=== PATIENT | female | born 1990 | race Caucasian/White ===

== ENCOUNTER 2023-06-12 12:42 | Outpatient (CLI) | payer BC, SELFPAY ==
--- NOTE | 2023-06-12 13:00 | CRLHL7_ITS ---
For Patients: As a result of the Century Cures Act, medical imaging exams and procedure reports are released immediately into your electronic medical record. You may view this report before your referring provider. If you have questions, please contact your health care provider. INDICATION: First trimester scan, establish dates. COMPARISON: None. TECHNIQUE: Real-time lange-scale imaging of the pelvis was performed. FINDINGS: Sonographic imaging demonstrates a single living intrauterine gestation. The embryo demonstrates a regular cardiac rate measuring 163 beats per minute. The embryo`s crown-rump length measurement of 2.0 cm corresponds to a gestational age of 8 weeks 4 days with a sonographic due date of 01/18/2024. There is a normal-appearing yolk sac. There are no gross abnormalities noted within the embryo at this early state of development. The gestational sac has a normal appearance. There is no evidence of a perigestational hemorrhage. The amount of fluid within the sac appears appropriate for gestational age. The cervix is closed. The myometrium appears normal. The ovaries are of normal size. Corpus luteal cyst left ovary. There are no suspicious fluid collections noted in the cul-de-sac. IMPRESSION: Normal first trimester OB ultrasound exam. Gestational age calculated at 8 weeks 4 days with a sonographic due date of 01/18/2024. Dictated by Roderick Mayer MD @ 06/13/2023 11:07:00 AM (Electronically Signed)
== END 2023-06-12 12:43 | disposition home or self-care (01) ==
LOC: US 12:43
PROVIDERS: Visit Provider Advanced Practice Midwife
DX: Z34.91 Encounter for supervision of normal pregnancy, unspecified, first trimester (principal); Z3A.08 8 weeks gestation of pregnancy
CPT/HCPCS: 76817; 86703; 86706; 86803; 86850; 86900; 86901; 87086; 87340; 87491; 87591

== ENCOUNTER 2023-06-12 13:02 | Outpatient (CLI) | payer BC, SELFPAY ==
[2023-06-12 20:27] LABS: Chlamydia DNA Amplified* NOT DETECTED (No Detected); GC DNA Amplified* NOT DETECTED (No Detected)
== END 2023-06-12 13:03 | disposition home or self-care (01) ==
PROVIDERS: Visit Provider Advanced Practice Midwife
DX: Z34.01 Encounter for supervision of normal first pregnancy, first trimester (principal)
CPT/HCPCS: 86592; 86703; 86704; 86706; 86762; 86787; 86803; 86850; 86900; 86901; 87086; 87340; 87491; 87591

== ENCOUNTER 2023-09-02 13:45 | Outpatient (CLI) | payer BC, SELFPAY ==
--- NOTE | 2023-09-02 14:00 | US_ITS ---
Patient: JOSSELIN GRIFFIN Facility:?[facility] Patient ID:?[id number] Site Patient ID:?[id number]. Site :?1991 Study:?US-OB Pelvis anatomy-09/02/2023 2:58:30 PM Ordering Physician:WARREN RAM Final Report: INDICATION: Evaluate anatomy. COMPARISON: 06/12/2023 TECHNIQUE: Real time lange scale imaging of the fetus was performed as well as color Doppler analysis of the umbilical vessels. FINDINGS: Sonographic imaging demonstrates a single living intrauterine gestation. Fetus demonstrates a regular cardiac rate of 150 beats per minute. Fetus has a breech position. The placenta lies posteriorly without evidence of placenta previa. Placental edge is 3.9 cm from the internal cervical os. Amniotic fluid volume appears normal. Single deepest vertical pocket: 5.6 cm. The cervix is closed and measures 4.3 cm in length. The composite ultrasound gestational age is calculated at 20 weeks 3 days with an estimated sonographic due date of 01/17/2024. The estimated weight is 375 grams which lies at the 79th %. The following biometric measurements were obtained: Biparietal diameter: 4.7 cm/20 weeks 2 days 57th% Head circumference: 17.8 cm/20 weeks 2 days 47th% Abdominal circumference: 15.8 cm/20 weeks 6 days 70th% Femur length: 3.4 cm/20 weeks 5 days 64th% The HC/AC ratio measures: 1.13 range (1.07-1.25) On anatomic survey, there is a normal appearance of the cerebral ventricles, cavum septi pellucidi, cisterna magna and cerebellum. The nose, lips, and facial profile appear normal. The cervical, thoracic and lumbar spine are well visualized and appear normal. There is a normal four-chamber heart view and the left and right ventricular outflow tracts appear normal. The diaphragm and stomach appear normal. The kidneys and bladder also appear normal. There is a normal three-vessel cord and cord insertion site. The four extremities appear normal. IMPRESSION: Normal OB ultrasound exam with concordance of clinical and sonographic dating. No intrinsic abnormalities noted on anatomic survey. Dictated by Roderick Mayer MD @ 09/03/2023 6:24:03 AM Signed by:?Roderick Mayer MD @09/03/2023 6:24:03 AM (Electronic Signature)
== END 2023-09-02 13:46 | disposition home or self-care (01) ==
LOC: US 13:45
PROVIDERS: Visit Provider Advanced Practice Midwife
DX: Z34.92 Encounter for supervision of normal pregnancy, unspecified, second trimester (principal); Z3A.20 20 weeks gestation of pregnancy
CPT/HCPCS: 76805

== ENCOUNTER 2023-11-05 13:30 | Outpatient (CLI) | payer BC, SELFPAY | END 2023-11-05 13:31 | disposition home or self-care (01) | LOC: NFLDREF 11-10 07:07 | PROVIDERS: Visit Provider Advanced Practice Midwife | DX: Z34.92 Encounter for supervision of normal pregnancy, unspecified, second trimester (principal) | CPT/HCPCS: 86592 ==

== ENCOUNTER 2023-12-09 11:57 | Outpatient (CLI) | payer BC, SELFPAY ==
[2023-12-10 14:27] LABS: Strep B DNA Probe Negative (Negative)
[2023-12-10 14:38] LABS: Strep B Susceptibility Needed? No
== END 2023-12-09 11:58 | disposition home or self-care (01) ==
LOC: NFLDREF 11:57
PROVIDERS: Visit Provider Advanced Practice Midwife
DX: Z34.83 Encounter for supervision of other normal pregnancy, third trimester (principal)
CPT/HCPCS: 82728; 87081; 87653

== ENCOUNTER 2024-01-20 15:24 | Outpatient (CLI) | payer BC, SELFPAY | END 2024-01-20 15:25 | disposition home or self-care (01) | LOC: NFLDREF 01-23 03:05 | PROVIDERS: Visit Provider Advanced Practice Midwife | DX: Z34.83 Encounter for supervision of other normal pregnancy, third trimester (principal) | CPT/HCPCS: 87081; 87653 ==

== ENCOUNTER 2024-01-25 18:29 | Inpatient (IN) | payer BC, SELFPAY ==
[2024-01-25] VITALS (57 sets, daily range): BP systolic 93–152; BP diastolic 51–95; PULSE 64–171; RESP 12–18; TEMP 36.6–36.9; O2SAT 81–100; BMI 30.6
[2024-01-25] MEDS: LACTATED RINGERS 1000 ML 1,000 ML 1200 ML IV ×2 (18:30→21:08)
[2024-01-25 18:41] LABS: Basophils Percent Auto 0.3 % (0.0-3.0); Eosinophils Percent Auto 0.3 % (0.0-7.0); Hematocrit 33.7 % (33.0-51.0); Hemoglobin* 11.2 gm/dL (12.0-16.0); Immature Granulocytes Pct Auto 0.5 %; Lymphocytes Percent Auto 15.3 % (20-44); Mean Corpuscular HGB Conc 33 gm/dL (32-36); Mean Corpuscular Hemoglobin 30 pg (26-34); Mean Corpuscular Volume 89 fL (80-100); Neutrophils Percent Auto 76.6 % (42.0-72.0); Platelet Count* 179 K/uL (140-440); RDW Coefficient of Variation % 14.5 % (11.5-15.5); Red Blood Count 3.77 m/uL (4.00-5.20); White Blood Count* 11.41 K/uL (4.50-11.00)
[2024-01-25 18:43] LABS: Slide Review Reflex No
--- NOTE | 2024-01-25 18:45 | W.PM.LDBA ---
Subjective History of Present Illness Time Seen by Provider: 18:15 Date Seen: 01/25/24 Narrative: Patient is being admitted to Labor and Delivery for active spontaneous labor at term. She is a 33 year old at weeks gestation. Her full history and physical was dictated by Adelso Valenzuela 01/01/2024 on 01/01/2024. Please see this for details. Onset of labor at noon. Good FM, No vaginal bleeding or leaking of fluid. Specific Issues/Plans Finesse GBS repeated at 40wks H&P done by Kayy Valenzuela CNM on 01/01/24 1. Family hx of PKU (aunt) Pt is carrier does not have this hx in his family, he is not tested declines genetic screening at [facility] 2. Hx of 3rd degree tear with 2nd delivery required repair in OR, with anemia post 3. Anemia. Hgb 10.3 at 29 wks. PO iron supplement QOD Hgb 10.8 at 34 weeks, continue iron supplement 4. Tick Bite/possible lyme's Disease at 34 weeks Amoxicillin 500 mg TID x 14 days, completed pap collected at [facility] OB - Problem Based A/P Additional Plan (1) Anemia affecting : Status: Acute (2) Supervision of other normal : Status: Acute (3) Pain during labor: Status: Acute Plan ASSESSMENT:?? 33 at 40w6d gestation?? complicated by:?? Labor type: Spontaneous, Active labor?? Category 2 FHR pattern.??? Labor complicated by: Cat 2 tones?? GBS negative? ?? PLAN:?? 1. Routine intrapartum cares as ordered. Continue with expectant management?? 2. Monitoring per policy, continuous. Cat 2 tones with conservative measures?? 3. Planning medicated . requesting epidural. 4. Patient encouraged to reposition and ambulate to promote physiologic labor and .?? 5. Hx 3rd degree laceration noted. Perineal support will be offered.? 6. Anticipate ? OB Result Labs Blood Type: A (+) positive Rubella: immune RPR/VDLR: nonreactive GBS Status: negative HBsAG: negative OB Exam Physical Exam Vital signs: Pulse BP Pulse Ox 94 147/90 H 97 01/25/24 18:25 01/25/24 18:25 01/25/24 18:19 Narrative: Vitals Reviewed Constitutional:? Alert and oriented x3 HEENT:? Normocephalic, atraumatic Neck:? Supple Lungs:? Clear to auscultation bilaterally Heart:? Regular rate and rhythm, no murmur, rub or gallop Abdomen:? Soft, nontender, and gravid. Extremities:? No edema or erythema Cervix: 7.5 cm/80%/-1 station/vertex per nursing, Sutures palpated and amniotic sac NST: 135 bpm/moderate variability/accelerationx1 noted since admit/variable decelerations noted, one late [id number]/contractions q 2-3 min x 80sec with soft resting tone >60sec in between
[2024-01-25] MEDS: BUPIVACAINE 0.25% PF 10 ML 10 ML ML EPIDURAL (19:21)
[2024-01-25] MEDS: ROPIVACAINE 0.2% 100 ml 100 ML 12 MG EPIDURAL (19:21)
[2024-01-25] MEDS: LACTATED RINGERS 1000 ML 1,000 ML 125 ML IV (19:44)
[2024-01-25] MEDS: ePHEDrine sulfate 5 MG/ML inj 10 MG IVP ×3 (20:01→20:51)
--- NOTE | 2024-01-25 20:01 | PM.ANBPRC ---
[facility] Medical History History of vaginal delivery Anemia due to acute blood loss (08/15/21) ?D62 - Acute posthemorrhagic anemia (ICD-10) Perineal laceration complicating delivery (08/15/21) ?O70.9 - Perineal laceration during delivery, unspecified (ICD-10) Laceration of vagina (08/15/21) ?S31.41XA - Laceration without foreign body of vagina and vulva, initial encounter (ICD-10) Encounter for induction of labor (08/15/21) ?Z34.90 - Encounter for supervision of normal , unspecified, unspecified trimester (ICD-10) Surgical History [place] teeth extracted ?K08.409 - Partial loss of teeth, unspecified cause, unspecified class (ICD-10) History of ankle surgery ?Z98.890 - Other specified postprocedural states (ICD-10) Family History Mother High blood pressure High cholesterol Father Cardiac arrhythmia Maternal Grandmother Lung cancer Paternal Grandmother Lung cancer Paternal Grandfather Alzheimers disease Social History Narrative: SOCIAL? ? Education: Bachelors? ? Work: Commercial insurance? ? Partner: ?Finesse , works as a preconstruction manager Lives with: Finesse and 2 children age 3.5yr and 18mos? ? Pets: 1 dog? ? Abuse: Denies past Safe at home with current partner ? ? ? Special Diet: Denies? ? Ok with a blood transfusion: yes? ? Culture or oriental orthodox beliefs: denies? RISK FACTORS? ? Exercise Times/wk: 3 days a week, weightlifting occasional cardio? ? Depression/Anxiety: denies? ? Previous Treatments NA ? Therapy NA JEFF: 1 PHQ 9: 1? ? Seat Belt Use: Routinely ? Smoking: Denies past/present? ? Alcohol/day: Denies while ? ?social drinking when not Caffeine: 2-3 cups when not , doing one cup of green tea now ? ? Drug Use: Denies past/present? Smoking Status: Never smoker Little interest or pleasure in doing things: not at all Feeling down, depressed, or hopeless: not at all Meds Home Medications and Allergies Home Medications ?Medication ?Instructions ?Recorded ?Confirmed ?Type docosahexaenoic acid 200 mg 200 mg PO DAILY 06/12/23 01/25/24 History capsule ( DHA) famotidine 10 mg tablet (Pepcid AC) 10 mg PO QDAY 11/24/23 01/25/24 History ferrous sulfate 134 mg (27 mg 134 mg PO ONCE 11/24/23 01/25/24 History iron) tablet Allergies Allergy/AdvReac Type Severity Reaction Status Date / Time No Known Drug Allergies Allergy Verified 01/20/24 14:22 Results Labs Labs: Laboratory Results - last 24 hr 01/25/24 18:30 WBC 11.41 H RBC 3.77 L Hgb 11.2 L Hct 33.7 MCV 89 MCH 30 MCHC 33 RDW Coeff of Stephanie 14.5 Plt Count 179 Neut % (Auto) 76.6 H Lymph % (Auto) 15.3 L [place] % (Auto) 7.0 Eos % (Auto) 0.3 Baso % (Auto) 0.3 Neut # (Auto) 8.70 H Lymph # (Auto) 1.70 [place] # (Auto) 0.80 Eos # (Auto) 0.00 Baso # (Auto) 0.00 Abs Immat Gran (auto) 0.10 Imm/Tot Granulo (auto) 0.5 Vital Signs Vital Signs: Last Vital Signs Temp 98 F 01/25/24 18:00 Pulse 76 01/25/24 19:54 Resp 16 01/25/24 18:00 BP 114/63 01/25/24 19:54 Pulse Ox 96 01/25/24 19:59 Weight: 83.461 kg Height: 165.1 cm Anesthesia Procedures Epidural Insertion Patient Location: OB Start Time: : Stop Time: : Start Date: 01/25/24 Stop Date: 01/25/24 Reason for Block: procedure for pain Patient Position: sitting Performed By: Vinny Tolentino Preanesthetic Checklist: IV checked, risks and benefits discussed, surgical consent, monitors and equipment checked, pre-op evaluation, timeout performed and anesthesia consent Prep: chlorhexidine gluconate Monitoring: blood pressure monitoring, continuous pulse oximetry and heart rate Approach: midline Vertebral Space: lumbar (1-5) Epidural Technique: STORMY saline Needle Type: Tuohy needle Injection Technique: continuous catheter Needle gauge: 17 Needle Length (cm): 10 cm Needle Insertion Depth (cm): 6 Catheter Gauge: 19 Catheter Type: multi-orifice Catheter at skin depth (cm): 12 Test Dose Result: negative and lidocaine 1.5% with epinephrine 1 to 200,000
[2024-01-25] MEDS: PHENYLEPHRINE 100 MCG/ML SYRINGE IVP ×2 (20:49→21:09)
[2024-01-25] MEDS: OXYTOCIN 30 unit/500 ML in NS 30 UNIT/500 ML BAG 300 UNIT IVPB (21:20)
--- NOTE | 2024-01-25 22:34 | PM.OBPNL ---
Subjective Date Seen: 01/25/24 Narrative: Significant variables with contractions late 1st stage and into 2nd stage. Moderate variability through out. [place] to 60s at times. Initial pushing attempt did not bring baby down past -2 station, but did improve the FHTS, so pushing was suspended for a bit until the variables returned and we wanted to be active expediting delivery. Objective Exam: VSS VE C/100/-2 then to zero station FHR 120s baseline with moderate variability, + variables, strong contractions Vital Signs: Last Vital Signs Temp 98 F 01/25/24 18:00 Pulse 103 H 01/25/24 22:26 Resp 16 01/25/24 18:00 BP 132/65 01/25/24 22:26 Pulse Ox 91 01/25/24 21:17 Plan Plan: ASSESSMENT:?? 33 at 40w6d gestation?? complicated by:??none Labor type: Spontaneous, Active labor?? Category 2 FHR pattern.??? Labor complicated by: Cat 2 tracing?? GBS negative? ?? PLAN:?? 1. Routine intrapartum cares as ordered. Continue with expectant management, but intervene with conservative management with cat 2 tracing. Considering AROM to expedite delivery, amnioinfusion. But will request OB on their way in case needed urgently.? 2. Monitoring per policy, continuous? 3. Pt consenting to decrease epidural strength to assist with pushing efforts??? 4. Patient encouraged to reposition.?? 5. Anticipate ? ?
--- NOTE | 2024-01-25 22:35 | W.PM.OBVAGDE ---
OB Procedure Vag Delivery Mother Details Mother Details: The patient is a 33 year-old, 3, now Para 3, admitted on 01/25/24 at Days gestation. Patient was admitted for spontaneous onset of labor and progressed normally until second stage. baby was vary high in the pelvis and we encouraged him down carefully with position changes. With deep variables noted, OB MD was asked to be on site, IVF bolused, position changes. SROM noted at 2055 with clear fluid. Patient was complete at 2022 and pushing at 2025. Progression toward delivery due to cat 2 tracing desired. With improved tones with pushing and no descent, pushing was paused and restarted with return of deep variables. of a viable male at 2027 in Right lateral maternal position. Vertex delivered straight OP, as expected. Nuchal cord x 4 and around left shoulder. Body delivered through without incident and cord unwound. Infant passed to mothers abdomen with a vigorous cry. Cord was clamped and cut at > 5 minutes. APGARS were 8 at one minute and 8 at five minutes respectively. Mouth was bulb suctioned. Intact placenta with a 3 vessel cord delivered spontaneously at 2127. Fundus firm. 1st degree identified and not repaired since hemostatic. QBL 350 cc. Mother and baby stable; mother plans to breastfeed. weight pending.? Additional Details Amniotic Membrane Status: SROM Amniotic Membrane Rupture Date: 01/25/24 Amniotic Membrane Rupture Time: 20:56 Amniotic Membrane Fluid Description: Clear Analgesia/Anesthesia Type: Epidural Waterbirth: No [place]: No Intrapartal Events: None Labor Onset: 12:00 Complete: 20:23 Pushin:26 Heart: heart tones during second stage were Category 2 which prompted conservative measures. Variability remained through out with no increase in baseline, but MD was called to site in case needed for assistance with quick delivery. Baby was known OP position with rotation manually attempted 2x with success of rotation to ROT, but baby was -2 station with only slow descent to 0 station, then he would rotate back to OP with next contraction. Rapid descent from 0 station to in the straight OP position. Delivery Details Delivery Date: 01/25/24 Delivery Time: 21:19 Route of delivery: Gender: Male Infant Viability: Alive; Heart Rate Present Position at Delivery: OP Delivery Details: Delivered over 1st degree perineal at introitus midline via spontaneous vaginal delivery. was placed on maternal abdomen.? Cord was clamped and cut after a >5m minute delay. Nose and mouth were bulb suctioned.? weight pending. 1 Minute Interval Total Score: 8 5 Minute Interval Total Score: 8 Additional Details Shoulder Dystocia: No Placenta Delivery Time: 21:28 Placental Delivery Description: Spontaneous Procedure Done: Global Blood Loss: 350 Laceration: Perineal - 1st Degree Episiotomy Description: None Blood Loss Measurement Type: QBL Bak[place] Used: No Sponge/Need Count Correct: Yes Cord Vessel Description: 3 Vessels, Nuchal Cord (x4 with wrap around left shoulder also, very long cord) and Delivered through Event Summary Status: Mother and infant were stable after delivery.
[2024-01-26] MEDS: IBUPROFEN 600 MG TABLET PO ×4 (00:16→21:50)
[2024-01-26 04:03] VITALS: BP 113/68; PULSE 96; RESP 12; TEMP 36.4
[2024-01-26] MEDS: ACETAMINOPHEN 500 MG TABLET 1000 MG PO ×3 (04:15→18:22)
[2024-01-26 06:35] LABS: Hemoglobin* 10.6 gm/dL (12.0-16.0)
--- NOTE | 2024-01-26 06:38 | PM.ANPOST ---
Post Anesthesia Note Post Anesthesia Note Patient seen: Inpatient Respiratory Status: adequate Cardiovascular Status: adequate Mental Status: baseline Pain: adequate Temp: baseline Anesthetic awareness: N/A Complications: none Follow care: none
[2024-01-26 07:36] VITALS: BP 111/73; PULSE 87; RESP 16; TEMP 36.6; O2SAT 96
[2024-01-26] MEDS: DOCUSATE SODIUM 100 MG CAPSULE PO (07:37)
--- NOTE | 2024-01-26 08:17 | PM.OBPNVD1 ---
OB - PN:Subj Subjective Date Seen: 01/26/24 Patient comments OB post-: no complaints, pain well controlled, tolerating diet and flatus present [place] status: and doing well [place] feeding status: exclusively Narrative: Digna feels well.? Her pain is well controlled with current medications.? She has no new complaints.? Urinary output is adequate and she is voiding without difficulty.? Has a good appetite, is tolerating a general diet, is passing flatus, and has not had a bowel movement.? Has small amount of rubra lochia.? She is ambulating well.?She is planning on discharging home tomorrow. OB - PN: Obj Exam Physical Exam: Vital signs: Temp Pulse Resp BP Pulse Ox O2 Del Method 97.8 F 87 16 111/73 96 Room Air 01/26/24 07:36 01/26/24 07:36 01/26/24 07:36 01/26/24 07:36 01/26/24 07:36 01/26/24 07:36 Narrative: GENERAL APPEARANCE:? normal affect, alert, no distress? MOOD:? appropriate? CHEST:? clear to auscultation and percussion? HEART:? regular rate and rhythm? ABDOMEN:? soft, non-tender the uterine fundus is U/2 and is appropriate for the stage of recovery. PERINEUM:? mild edema of the perineum, there is a 1st degree perineal laceration that is healing well.? EXTREMITIES:? normal and no edema? OB - PN: Obj Data Labs Labs: Laboratory Results - last 24 hr 01/25/24 01/26/24 18:30 06:21 WBC 11.41 H RBC 3.77 L Hgb 11.2 L 10.6 L Hct 33.7 MCV 89 MCH 30 MCHC 33 RDW Coeff of Stephanie 14.5 Plt Count 179 Neut % (Auto) 76.6 H Lymph % (Auto) 15.[address] [place] % (Auto) 7.0 Eos % (Auto) 0.3 Baso % (Auto) 0.3 Neut # (Auto) 8.70 H Lymph # (Auto) 1.70 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
[2024-01-26 12:12] VITALS: BP 114/75; PULSE 80; RESP 16; TEMP 36.7; O2SAT 97
[2024-01-26 16:47] VITALS: BP 120/78; PULSE 78; RESP 16; TEMP 36.7; O2SAT 96
[2024-01-26 21:18] VITALS: BP 126/77; PULSE 77; RESP 16; TEMP 37.2; O2SAT 99
[2024-01-27 00:14] VITALS: BP 119/79; PULSE 68; RESP 18; TEMP 36.9
[2024-01-27] MEDS: ACETAMINOPHEN 500 MG TABLET 1000 MG PO (03:49)
--- NOTE | 2024-01-27 07:29 | PM.OBDSVD1 ---
DS: Providers Provider Date Seen: 02/11/24 Date of admission: 01/25/24 18:29 Primary care physician: Not a Local Provider Admitting Clinician: Alida Bo CNM Attending Physician on discharge: Hanh Pompa CNM DS: Diagnosis Discharge Diagnosis (1) care following vaginal delivery: Status: Acute (2) Lactating mother: Status: Acute Exam Narrative: Exam Narrative: GENERAL APPEARANCE:? normal affect, alert, no distress MOOD:? appropriate CHEST:? clear to auscultation HEART:? regular rate and rhythm ABDOMEN:? soft, non-tender the uterine fundus is 1 below Umbilicus, Midline and is appropriate for the stage of recovery. PERINEUM:? mild edema of the perineum, there is a Perineal Laceration,?1st degree, that is healing well. EXTREMITIES:? normal and no edema Const: Vital Signs, click to edit/add: Vital Signs - 24 hr 01/26/24 07:36 01/26/24 12:12 01/26/24 16:47 Temperature 97.8 F 98.1 F 98.0 F Pulse Rate [Blood Pressure Cuff] 87 80 78 Respiratory Rate 16 16 16 Blood Pressure [Le ft Arm] 111/73 114/75 120/78 Pulse Oximetry 96 97 96 Oxygen Delivery Me thod Room Air Room Air Room Air 01/26/24 21:18 01/27/24 00:14 Temperature 98.9 F 98.5 F Pulse Rate [Blood Pressure Cuff] 77 68 Respiratory Rate 16 18 Blood Pressure [Le ft Arm] 126/77 119/79 Pulse Oximetry 99 Oxygen Delivery Me thod Room Air Room Air Documenting provider has reviewed patient's vital signs: yes OB - DS: Summary Hospital Course Hospital Course: Digna is a 33 y.o. G 3 P 3 who was admitted to [facility] for spontaneous onset of labor. ?She had a NVD that was uncomplicated. The patient feels well. ?The pain is well controlled with current medications. ?She has no new complaints. ?She is breast feeding and reports things are going well. the patient has done well.? Vitals have been stable.? She has remained afebrile.? Has a good appetite, is tolerating a general diet. ?She is voiding without difficulty.? She is passing gas and has not had a bowel movement.? She is ambulating and denies any dizziness.? Has small amount of rubra lochia. Problems: none plan: Discharge home with baby. Follow up in 2 weeks and 6 weeks. , may see if needed Hgb 10.6. Peripartum Data delivery method: Vaginal Laceration description: Perineal - 1st Degree complications: none [place] Gender: Male Infant Discharge Plan: Home Status at Discharge Functional status at discharge: independent ambulation Overall status at discharge: patient is progressing back to baseline Time Spent with Patient Time attestation: Total time spent providing and/or coordinating discharge services: Time spent: Less than 30 minutes Discharge Plan Discharge Disposition: Home, Self-Care Date of Admission: 01/25/24 18:29 Attending Provider on Discharge: Hanh Pompa Primary Care Provider: Provider,Not a Local Condition: Stable Anticipated Discharge Date/Time: 01/27/24 12:00 Discharge Medications: New acetaminophen 500 mg Tablet 1,000 mg PO Q6H PRNQty: 0 0RF docusate sodium 100 mg Capsule 100 mg PO DAILY Qty: 0 0RF ibuprofen 600 mg Tablet 600 mg PO Q6H PRNQty: 0 0RF Continued DHA 200 mg capsule 200 mg PO DAILY famotidine [Pepcid AC] 10 mg tablet 10 mg PO QDAY ferrous sulfate 134 mg (27 mg iron) tablet 134 mg PO ONCE Discharge Orders: Discharge Order (Routine); Ordered 01/27/24 Ordered By: Hanh Pompa Patient Education: OB Over the Counter Medication Information, OB Vaginal/Breast Feeding Additional Instructions: Discharge instructions were reviewed with the patient including signs and symptoms of infection and home going medications Nothing vaginally for 6 weeks: no tampons or intercourse Off Work or School for 6 weeks 2-week visit: discuss infant feeding concerns, review control options and screen for anxiety/depression. 6-week visit for an annual exam. consultation services are available to all mothers and babies for the first year after delivery.? To make an appointment, please call [phone]. Activity Level: Activity as Tolerated Follow Up Appointments: Provider,Not a Local [Primary Care Provider] - Forms: [place] Info Instructions
[2024-01-27 08:50] VITALS: BP 109/71; PULSE 73; RESP 18; TEMP 36.5; O2SAT 94
[2024-01-27] MEDS: DOCUSATE SODIUM 100 MG CAPSULE PO (09:04)
[2024-01-28 04:30] LABS: Rapid Plasma Reagin (RPR) Non Reactive (Non Reactive)
== END 2024-01-27 12:07 | disposition home or self-care (01) | DRG 560 ==
LOC: OB 18:43 → OB OUT 18:44 → OB 18:44
PROVIDERS: Admitting Provider Midwife; Visit Provider Midwife
DX: O99.02 Anemia complicating childbirth (principal); D64.9 Anemia, unspecified; O70.0 First degree perineal laceration during delivery; Z15.89 Genetic susceptibility to other disease; Z83.49 Family history of other endocrine, nutritional and metabolic diseases; Z14.8 Genetic carrier of other disease; Z3A.40 40 weeks gestation of pregnancy; Z37.0 Single live birth
CPT/HCPCS: 01967; 36415; 85018; 85025; 86592; A9270; J0665; J2371; J2795; J7120